=== PATIENT | female | born 1970 | race Caucasian/White ===

== ENCOUNTER 2016-07-25 20:49 | Emergency (ER) | payer MEDICAID ==
[2016-07-25] MEDS ORDERED: DEXAMETHASONE SOD PHOSPHATE 10 MG/ML VIAL IM ONE (21:11)
[2016-07-25] MEDS ORDERED: ALBUTEROL SULFATE 2.5 MG/3 ML VIAL.NEB IH ONE (21:11)
[2016-07-25] MEDS ORDERED: DEXAMETHASONE SOD PHOSPHATE 10 MG/ML VIAL ONE (21:12)
[2016-07-25] MEDS ORDERED: ALBUTEROL SULFATE/IPRATROPIUM 3 ML NEBU IH ONE ×2 (21:12→21:17)
[2016-07-25] MEDS ORDERED: ALBUTEROL SULFATE 2.5 MG/0.5 ML VIAL.NEB IH ONE (21:15)
--- NOTE | 2016-07-25 21:19 | ERNOTE ---
Dyspnea - Date Date of Service: 07/25/16 - General Presenting Symptoms: shortness of breath Source: patient Exam Limitations: no limitations - Immun/Allergies/Home Medications Immunizations: IMMUNIZATION HX Immunizations Up to Date Yes History of Influenza Vaccine Yes Hx Pneumococcal Vaccination No Allergies/Adverse Reactions: Allergies buspirone HCl [From BuSpar] Allergy (Mild, Verified 10/08/15 09:19) CHEST PAIN Penicillins Allergy (Mild, Verified 10/08/15 09:19) RASH Home Medications: HOME MEDICATIONS ALPRAZolam [Xanax] 0.5 mg PO BID PRN 11/23/12 [Last Taken Unknown] Albuterol Sulfate [Ventolin Hfa] 2 puff IH TID PRN 11/23/12 [Last Taken Unknown] Citalopram Hydrobromide [Celexa] 40 mg PO DAILY 11/23/12 [Last Taken Unknown] Famotidine [Pepcid] 40 mg PO BID 11/23/12 [Last Taken Unknown] Montelukast Sodium [Singulair] 10 mg PO DAILY 11/23/12 [Last Taken Unknown] Albuterol Sulfate 2.5 mg IH PRN PRN 03/03/14 [Last Taken Unknown] Dexlansoprazole [Dexilant] 60 mg PO DAILY 03/03/14 [Last Taken Unknown] Fluticasone Propionate [Flonase] 2 spray NS DAILY 03/03/14 [Last Taken Unknown] Ipratropium [place] 0.2 mg IH PRN PRN 03/03/14 [Last Taken Unknown] Loratadine [Claritin] 10 mg PO DAILY 03/03/14 [Last Taken Unknown] - History of Present Illness Narrative: 45 year old that has been having difficulty breathing and chest pressure for 24 hours. This episode is similar to others that she has had. Denies any fevers, chills, back pain. Complaints of wheezing with frequent use of her inhaler, without resolution of the symptoms. Over the last three months she has had frequent exacerbations of her asthma, but there has not been any changes in her medication. Denies any previous heart disease, DVT, PE or pneumonia. 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 Frequency of episodes: Reports: frequent episodes Modifying Factors - (Improves): Reports: nothing Modifying Factors (Worsens): Reports: other - exertion Associated Symptoms-Dyspnea: Reports: cough Prior Treatment: Reports: treated by physician Review of Systems - Review of Systems Constitutional: Present: no symptoms reported EYE: Present: no symptoms reported ENT: Present: no symptoms reported Respiratory: Present: See HPI Cardiology: Present: no symptoms reported Gastrointestinal/Abdominal: Present: no symptoms reported Genitourinary: Present: no symptoms reported Musculoskeletal: Present: no symptoms reported Skin: Present: no symptoms reported Neurological: Present: no symptoms reported Endocrine: Present: no symptoms reported Hematologic/Lymphatic: Present: no symptoms reported Psych: Present: no symptoms reported - Patient's Past Medical History Patient History - Medical: Anxiety, Depression, GERD Patient History - Cardiac/Respiratory: Asthma, Bronchitis Patient History - Cancer: No Hx of Cancer Patient History - Surgical Procedures: Cholecystectomy, Tubal Ligation Patient History - Other: None LMP (females 10-50): this week - Social History Living Situations: spouse Abuse History: No History of abuse Psych History: Hx of Anxiety, Hx of Depression Smoking Status: Former smoker Alcohol Use: none Drug Use: none - Immunizations Immunizations Up to Date: Yes Hx Pneumococcal Vaccination: No History of Influenza Vaccine: Yes Physical Exam - Physical Exam General Appearance: Present: no apparent distress Eye Exam: Normal inspection: bilateral, PERRL: bilateral, EOMI: bilateral Ears, Nose, Throat: Present: normal ENT inspection Neck: Present: normal inspection Respiratory: Present: no respiratory distress, decreased breath sounds, rhonchi Cardiovascular/Chest: Present: regular rate, rhythm Gastrointestinal/Abdominal: Present: nontender Back Exam: Present: normal inspection Extremity Exam: Present: normal inspection Neurological Exam: Present: alert, 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 Vital Signs: Vital Signs 07/25/16 20:52 Temperature 37.0 C Pulse Rate 72 Respiratory 20 Rate Blood Pressure 131/76 O2 Sat by Pulse 98 Oximetry - Progress/Reassessment Chief Complaint: Dyspnea Progress:: Improved Progress Note-Subjective: 07/25/16 23:10 Now asymptomatic after the one hour neb treatment. Departure Clinical Impression: Exacerbation of asthma - Departure Disposition: Home self-care Condition: Good Instructions: Asthma, Acute Bronchospasm Print Language: Citizen Of [place] Additional Instructions: It is suggested that you ask your doctor about starting a steroid/ long acting inhaler such as Advir Discus to help lessen the frequency of the asthma attacks. Return to the ED as needed.
[2016-07-25 23:12] VITALS: BP 110/77
== END 2016-07-25 23:14 | disposition home or self-care (01) ==
LOC: ER 20:49
DX: J45.901 Unspecified asthma with (acute) exacerbation (principal); Z87.891 Personal history of nicotine dependence

== ENCOUNTER 2016-11-24 16:30 | Emergency (ER) | payer MEDICAID ==
--- NOTE | 2016-11-24 17:48 | ERNOTE ---
Date of Service: 11/24/16 Time Seen by Provider: 11/24/16 17:16 Stated Complaint: SOB, CHEST HEAVINESS Presenting Symptoms:: other - Asthma Source: patient, RN notes reviewed Exam Limitations: no limitations Immunizations: IMMUNIZATION HX Immunizations Up to Date Yes History of Influenza Vaccine Yes Hx Pneumococcal Vaccination No Allergies/Adverse Reactions: Allergies buspirone HCl [From BuSpar] Allergy (Mild, Verified 11/24/16 16:50) CHEST PAIN Penicillins Allergy (Mild, Verified 11/24/16 16:50) RASH Home Medications: HOME MEDICATIONS ALPRAZolam [Xanax] 0.5 mg PO BID PRN 11/23/12 [Last Taken Unknown] Albuterol Sulfate [Ventolin Hfa] 2 puff IH TID PRN 11/23/12 [Last Taken Unknown] Famotidine [Pepcid] 40 mg PO BID 11/23/12 [Last Taken Unknown] Montelukast Sodium [Singulair] 10 mg PO DAILY 11/23/12 [Last Taken Unknown] Dexlansoprazole [Dexilant] 60 mg PO DAILY 03/03/14 [Last Taken Unknown] Fluticasone Propionate [Flonase] 2 spray NS DAILY 03/03/14 [Last Taken Unknown] Loratadine [Claritin] 10 mg PO DAILY 03/03/14 [Last Taken Unknown] FLUoxetine HCL [Prozac] 10 mg PO DAILY 11/24/16 [Last Taken Unknown] predniSONE [Prednisone] 2 tab PO DAILY #14 tab 11/24/16 [Last Taken Unknown] - History of Present Ilness Narrative: 46 y/o female to the ED by private vehicle for shortness of breath, chest heaviness and a cough that has been worsening over the past several months. She has asthma and is on Advair and uses an Albuterol inhaler. She is a former smoker. She denies any sick contacts. Of note, she presents with a male patient who is being seen for unrelated/ nonemergent issues. Timing: getting worse, intermittent Frequency/Possible Cause: Reports: unknown cause Associated Symptoms: Reports: cough, shortness of breath, wheezing, nasal drainage, other - seasonal allergy symptoms. Denies: chest pain/soreness, facial pain, nasal congestion, lightheadedness, earache, headache, sore throat, fever/chills Prior Treatment: Denies: recently seen Review of Systems - Review of Systems Constitutional: Absent: recent illness, fever, chills, malaise EYE: Absent: eye discharge, tearing ENT: Present: nasal drainage. Absent: ear pain, nose congestion, sore throat Respiratory: Present: shortness of breath, cough, wheezing. Absent: orthopnea Cardiology: Absent: chest pain, edema Gastrointestinal/Abdominal: Absent: nausea, abdominal pain Genitourinary: Present: no symptoms reported Musculoskeletal: Absent: neck pain, joint pain Skin: Absent: rash, lesions Neurological: Absent: headache, dizziness/light-headedness Endocrine: Present: no symptoms reported Hematologic/Lymphatic: Present: no symptoms reported Psych: Present: no symptoms reported - Patient's Past Medical History Patient History - Medical: Anxiety, Depression, GERD Patient History - Cardiac/Respiratory: Asthma, Bronchitis Patient History - Cancer: No Hx of Cancer Patient History - Surgical Procedures: Cholecystectomy, Tubal Ligation Patient History - Other: None LMP (females 10-50): 3 weeks - Social History Living Situations: spouse Abuse History: No History of abuse Psych History: Hx of Anxiety, Hx of Depression Smoking Status: Former smoker Alcohol Use: none Drug Use: none - Immunizations Immunizations Up to Date: Yes Hx Pneumococcal Vaccination: No History of Influenza Vaccine: Yes Physical Exam - Physical Exam General Appearance: Present: wd/wn, alert, no apparent distress Head Exam: Present: normal inspection Eye Exam: Normal inspection: bilateral Ears, Nose, Throat: Present: normal ENT inspection Neck: Present: normal inspection, nontender, supple Respiratory: Present: no respiratory distress, no accessory muscle use, lungs clear, expiration (prolonged) Cardiovascular/Chest: Present: regular rate, rhythm, no murmur Extremity Exam: Present: normal inspection, no edema Neurological Exam: Present: alert, oriented, other - Flat affect. Absent: normal mood/affect Skin Exam: Present: normal color, warm/dry ED Progress - Vital Signs Patient's Vital Signs:: I have reviewed the patient's vital signs. Vital Signs: Vital Signs 11/24/16 16:40 Temperature 37.1 C Pulse Rate 72 Respiratory 17 Rate Blood Pressure 137/78 O2 Sat by Pulse 97 Oximetry - X-Ray X-Ray #1 X-Ray: chest Interpretation: Interp. by me X-ray Comments: No acute cardiopulmonary process noted - Progress/Reassessment Chief Complaint: Upper Respiratory Symptoms Progress:: Unchanged Departure - Departure Clinical Impression: Exacerbation of asthma Disposition: Home Follow Up Needed Condition: Good Instructions: Asthma, Adult, [id number] Additional Instructions: Wait until morning to start prednisone Follow up with your doctor if symptoms continue once you have finished the medication Referrals: Des Payton DO [Primary Care Provider] - Prescriptions: predniSONE [Prednisone] 2 tab PO DAILY #14 tab
[2016-11-24 21:02] VITALS: BP 121/75
== END 2016-11-24 18:31 | disposition home or self-care (01) ==
LOC: ER 16:30
DX: J45.901 Unspecified asthma with (acute) exacerbation (principal); Z87.891 Personal history of nicotine dependence; F41.9 Anxiety disorder, unspecified; F32.9 Major depressive disorder, single episode, unspecified; K21.9 Gastro-esophageal reflux disease without esophagitis

== ENCOUNTER 2017-02-13 20:20 | Emergency (ER) | payer MEDICAID ==
[2017-02-13 20:59] VITALS: BP 125/69
[2017-02-13 21:53] LABS: Hematocrit 43.9 % (37.0-47.0); Hemoglobin 14.2 gm/dL (12.5-16.0); Mean Cell Volume 89.4 fl (78-100); Mean Corpuscular Hemoglobin 28.9 pg (27-31); Mean Corpuscular Hgb Conc 32.3 g/dl (32-36); Mean Platelet Volume 9.2 fl (6.0-9.5); Neutrophil # 8.9 K/mm3 (1.3-6.0); Neutrophil % 68.9 % (42-75.0); Platelet Count 454 K/mm3 (150-450); Red Blood Count 4.91 M/mm3 (4.2-5.4); Red Cell Distribution Width 13.3 % (11.5-14.0); White Blood Count 12.8 K/mm3 (4.0-10.5)
--- NOTE | 2017-02-13 21:53 | ERNOTE ---
Upper Extremity HPI - Narrative Date of Service: 02/13/17 - General Time Seen by Provider: 02/13/17 20:55 Source: patient Exam Limitations: no limitations - Immun/Allergies/Home Medications Immunizations: IMMUNIZATION HX Immunizations Up to Date Yes History of Influenza Vaccine Yes Hx Pneumococcal Vaccination No Allergies/Adverse Reactions: Allergies Allergy/AdvReac Type Severity Reaction Status Date / Time buspirone HCl [From BuSpar] Allergy Mild CHEST PAIN Verified 11/24/16 16:50 Penicillins Allergy Mild RASH Verified 11/24/16 16:50 Home Medications: HOME MEDICATIONS ALPRAZolam [Xanax] 0.5 mg PO BID PRN 11/23/12 [Last Taken Unknown] Albuterol Sulfate [Ventolin Hfa] 2 puff IH TID PRN 11/23/12 [Last Taken Unknown] Famotidine [Pepcid] 40 mg PO BID 11/23/12 [Last Taken Unknown] Montelukast Sodium [Singulair] 10 mg PO DAILY 11/23/12 [Last Taken Unknown] Dexlansoprazole [Dexilant] 60 mg PO DAILY 03/03/14 [Last Taken Unknown] Fluticasone Propionate [Flonase] 2 spray NS DAILY 03/03/14 [Last Taken Unknown] Loratadine [Claritin] 10 mg PO DAILY 03/03/14 [Last Taken Unknown] FLUoxetine HCL [Prozac] 10 mg PO DAILY 11/24/16 [Last Taken Unknown] predniSONE [Prednisone] 2 tab PO DAILY #14 tab 11/24/16 [Last Taken Unknown] Ibuprofen [Motrin] 600 mg PO TID PRN #15 tablet 02/13/17 [Last Taken Unknown] Sulfamethoxazole/Trimethoprim [Bactrim Ds] 1 tab PO BID #14 tablet 02/13/17 [ Last Taken Unknown] - History of Present Illness Narrative: Patient presents to the emergency room for shoulder pain on the right side that she has had for approximately week and half. She denies any trauma she denies any repetitive motions there has been no offending action against her right shoulder in her daily life. And she complains of pain in the right upper neck region shoulder biceps area and forearm. She denies any chest pains whatsoever she does state that every so often she gets abdominal pains in the left lower quadrant of the abdomen denies any nausea vomiting diarrhea or constipation, pain now Review of Systems - Review of Systems Constitutional: Present: no symptoms reported EYE: Present: no symptoms reported ENT: Present: no symptoms reported Respiratory: Present: no symptoms reported Cardiology: Present: no symptoms reported Gastrointestinal/Abdominal: Present: no symptoms reported Genitourinary: Present: no symptoms reported Musculoskeletal: Present: See HPI Skin: Present: no symptoms reported - Patient's Past Medical History Patient History - Medical: Anxiety, Depression, GERD Patient History - Cardiac/Respiratory: Asthma, Bronchitis Patient History - Cancer: No Hx of Cancer Patient History - Surgical Procedures: Cholecystectomy, Tubal Ligation Patient History - Other: None - Social History Living Situations: home Abuse History: No History of abuse Psych History: Hx of Anxiety, Hx of Depression, Current tx/ever been on anti- depressants or anti-anxiety meds Smoking Status: Former smoker Alcohol Use: none Drug Use: none - Immunizations Immunizations Up to Date: Yes Hx Pneumococcal Vaccination: No History of Influenza Vaccine: Yes Physical Exam - Physical Exam General Appearance: Present: wd/wn, alert, no apparent distress Head Exam: Present: normal inspection, no evidence of injury Neck: Present: normal inspection, nontender - patient is slightly tender upon palpation of the right upper trapezius I don't feel any spasm. Respiratory: Present: no respiratory distress, normal breath sounds, no accessory muscle use, chest nontender, lungs clear Cardiovascular/Chest: Present: regular rate, rhythm, no murmur, normal peripheral pulses Back Exam: Present: normal inspection Extremity Exam: Present: normal inspection - examination of all 4 extremities is within normal limits I do not see any deformity bruising ecchymosis or anomalies of the right upper extremity she is able to move her shoulder and right elbow and CONFIGURATION without any pain. The exam of the upper extremity on the right side is essentially normal. Neurological Exam: Present: alert, oriented, normal mood/affect, no motor/ sensory deficits ED Progress - Results and Orders Patient's Lab Results:: I have reviewed the patient's lab results. - Vital Signs Patient's Vital Signs:: I have reviewed the patient's vital signs. Vital Signs: Vital Signs 02/13/17 20:53 Temperature 36.2 C L Pulse Rate 74 Respiratory 18 Rate Blood Pressure 125/69 O2 Sat by Pulse 100 Oximetry - X-Ray X-Ray #1 X-Ray: shoulder - Progress/Reassessment Chief Complaint: Upper Extremity Injury/Problem Plan - Plan Plan: This patient appears to have musculoskeletal pain of the right shoulder her x- ray is negative however she will be given a sling for her right upper extremity additionally her urinalysis reveals bacteria and blood on the urine and she will be treated for UTI. Departure Clinical Impression: Pain, joint, shoulder region, right Urinary tract infection Qualifiers: Urinary tract infection type: site unspecified Hematuria presence: with hematuria Qualified Code(s): N39.0 - Urinary tract infection, site not specified ; R31.9 - Hematuria, unspecified; R31.9 - Hematuria, unspecified - Departure Disposition: Home self-care Condition: Good Instructions: Arthritis Referrals: Des Payton DO [Primary Care Provider] - Prescriptions: Ibuprofen [Motrin] 600 mg PO TID PRN #15 tablet PRN Reason: Pain Sulfamethoxazole/Trimethoprim [Bactrim Ds] 1 tab PO BID #14 tablet
[2017-02-13 22:13] LABS: Urine Bilirubin Negative (NEGATIVE); Urine Blood 50 /ul (NEGATIVE); Urine Ketone Negative (NEGATIVE); Urine Nitrite Negative (NEGATIVE); Urine Protein Negative (NEGATIVE); Urine Specific Gravity >=1.030 SP.GR. (1.005-1.010); Urine Urobilinogen Normal (NORMAL); Urine pH 5.5 pH (5.0-7.0)
[2017-02-13 22:17] LABS: Urine Appearance Slightly Cloudy; Urine Bacteria 1+; Urine Color Yellow; Urine Mucus Moderate - 2+; Urine RBC 0-5 /hpf (0-5); Urine WBC 0-5 /hpf (0-5)
== END 2017-02-13 22:36 | disposition home or self-care (01) ==
LOC: ER 20:20
DX: M25.511 Pain in right shoulder (principal); N39.0 Urinary tract infection, site not specified; R31.9 Hematuria, unspecified

== ENCOUNTER 2017-06-07 18:42 | Emergency (ER) | payer MEDICAID ==
[2017-06-07] MEDS ORDERED: KETOROLAC TROMETHAMINE 60 MG/2 ML VIAL IM ONE ×2 (18:54→19:01)
[2017-06-07] MEDS ORDERED: CLINDAMYCIN PHOSPHATE 150 MG/ML VIAL IM ONE (18:54)
--- NOTE | 2017-06-07 18:57 | ERNOTE ---
ENT HPI Date of Service: 06/07/17 Presenting Symptoms: dental pain Time Seen by Provider: 06/07/17 18:50 Source: patient Exam Limitations: no limitations - Immun/Allergies/Home Medications Immunizations: IMMUNIZATION HX Immunizations Up to Date Yes History of Influenza Vaccine Yes Hx Pneumococcal Vaccination No Allergies/Adverse Reactions: Allergies Allergy/AdvReac Type Severity Reaction Status Date / Time buspirone HCl [From BuSpar] Allergy Mild CHEST PAIN Verified 06/07/17 18:51 Penicillins Allergy Mild RASH Verified 06/07/17 18:51 Home Medications: HOME MEDICATIONS ALPRAZolam [Xanax] 0.5 mg PO BID PRN 11/23/12 [Last Taken Unknown] Albuterol Sulfate [Ventolin Hfa] 2 puff IH TID PRN 11/23/12 [Last Taken Unknown] Famotidine [Pepcid] 40 mg PO BID 11/23/12 [Last Taken Unknown] Fluticasone Propionate [Flonase] 2 spray NS DAILY 03/03/14 [Last Taken Unknown] FLUoxetine HCL [Prozac] 10 mg PO DAILY 11/24/16 [Last Taken Unknown] Clindamycin HCl [Cleocin HCl] 300 mg PO Q6H #40 capsule 06/07/17 [Last Taken Unknown] Naproxen [Naprosyn] 500 mg PO BID PRN #60 tab 06/07/17 [Last Taken Unknown] - History of Present Illness Narrative: Pt. comes in with c/o R maxillary pain for two days. Pt. has a hx of dental pain previously but does not have a dentist that she sees regularly. Pt. states that she took Ibuprofen yesterday with some relief. Severity: Present: mild ENT Location: Present: dental Prearrival Treatment: Present: over the counter meds Modifying Factors - Improves: Reports: nothing Modifying Factors - Worsens: Reports: oxygen, other - eating Associated Symptoms - ENT: Reports: denies symptoms Prior Treament: Reports: similar symptoms before. Denies: recently seen, treated by physician, recently hospitalized, currently on antibiotics Review of Systems - Review of Systems Constitutional: Present: no symptoms reported. Absent: fever, chills, weakness , fatigue, malaise EYE: Present: no symptoms reported. Absent: eye pain, double vision ENT: Present: other - R maxillary dental pain Respiratory: Present: no symptoms reported. Absent: shortness of breath, cough , wheezing Cardiology: Present: no symptoms reported. Absent: chest pain, edema Gastrointestinal/Abdominal: Present: no symptoms reported. Absent: nausea, vomiting, diarrhea, abdominal pain Genitourinary: Present: no symptoms reported Musculoskeletal: Present: no symptoms reported. Absent: back pain, joint pain Skin: Present: no symptoms reported. Absent: rash, change in color Neurological: Present: no symptoms reported. Absent: headache, dizziness/light- headedness, numbness, tingling All Other Systems: All systems neg except as marked - Patient's Past Medical History Patient History - Medical: Anxiety, Depression, GERD Patient History - Cardiac/Respiratory: Asthma, Bronchitis Patient History - Cancer: No Hx of Cancer Patient History - Surgical Procedures: Cholecystectomy, Tubal Ligation Patient History - Other: None - Social History Abuse History: No History of abuse Psych History: Hx of Anxiety, Hx of Depression, Current tx/ever been on anti- depressants or anti-anxiety meds Smoking Status: Former smoker Have you smoked in the past 12 months: No Alcohol Use: none Drug Use: none - Immunizations Immunizations Up to Date: Yes Hx Pneumococcal Vaccination: No History of Influenza Vaccine: Yes Physical Exam - Physical Exam General Appearance: Present: wd/wn, alert, no apparent distress Head Exam: Present: normal inspection, no evidence of injury, no tenderness w palpation Eye Exam: Normal inspection: bilateral Ears, Nose, Throat: Present: normal pharynx, other - R maxillary abscess noted at gumline above R canine tooth with caries below pulp Neck: Present: normal inspection, nontender, supple, full range of motion. Absent: lymphadenopathy (R), lymphadenopathy (L) Respiratory: Present: no respiratory distress, normal breath sounds, no accessory muscle use, chest nontender, lungs clear Cardiovascular/Chest: Present: regular rate, rhythm, no murmur, normal peripheral pulses Gastrointestinal/Abdominal: Present: normal bowel sounds, nontender, nondistended, soft, no organomegaly Back Exam: Present: normal inspection, normal range of motion, no CVA tenderness , no vertebral tenderness Extremity Exam: Present: normal inspection, non-tender, normal range of motion, no edema Neurological Exam: Present: alert, oriented, normal mood/affect, no motor/ sensory deficits Skin Exam: Present: normal color, warm/dry. Absent: pallor, skin rash ED Progress - Vital Signs Patient's Vital Signs:: I have reviewed the patient's vital signs. Vital Signs: Vital Signs 06/07/17 18:47 Temperature 37.1 C Pulse Rate 77 Respiratory 18 Rate Blood Pressure 144/80 O2 Sat by Pulse 100 Oximetry - Progress/Reassessment Chief Complaint: Dental Problem Departure Clinical Impression: Dental abscess - Departure Disposition: Home self-care Condition: Good Instructions: Dental Abscess, [id number] Additional Instructions: Please follow up with dentist tomorrow and stop Ibuprofen Referrals: Des Payton DO [Primary Care Provider] - Prescriptions: Clindamycin HCl [Cleocin HCl] 300 mg PO Q6H #40 capsule Naproxen [Naprosyn] 500 mg PO BID PRN #60 tab PRN Reason: Pain
[2017-06-07 19:30] VITALS: BP 136/71
== END 2017-06-07 19:29 | disposition home or self-care (01) ==
LOC: ER 18:42
DX: K04.7 Periapical abscess without sinus (principal); K21.9 Gastro-esophageal reflux disease without esophagitis; F41.9 Anxiety disorder, unspecified; F32.9 Major depressive disorder, single episode, unspecified; J45.909 Unspecified asthma, uncomplicated; Z87.891 Personal history of nicotine dependence

== ENCOUNTER 2018-06-18 20:13 | Observation (INO) ==
[2018-06-18] MEDS ORDERED: KETOROLAC TROMETHAMINE 60 MG/2 ML VIAL IM ONE (20:43)
[2018-06-18 20:45] LABS: Urine Bilirubin Negative (NEGATIVE); Urine Blood 250 /ul (NEGATIVE); Urine Ketone Negative (NEGATIVE); Urine Nitrite Negative (NEGATIVE); Urine Protein Negative (NEGATIVE); Urine Specific Gravity >=1.030 SP.GR. (1.005-1.010); Urine Urobilinogen Normal (NORMAL)
--- NOTE | 2018-06-18 20:48 | ERNOTE ---
Abdominal HPI - General Chief Complaint: Abdominal Pain Time Seen by Provider: 06/18/18 20:42 Source: patient Exam Limitations: no limitations - Immun/Allergies/Home Medications Immunizatons: IMMUNIZATION HX Immunizations Up to Date Yes History of Influenza Vaccine Yes Hx Pneumococcal Vaccination No Allergies/Adverse Reactions: Allergies buspirone HCl [From BuSpar] Allergy (Mild, Verified 06/17/18 10:34) CHEST PAIN Penicillins Allergy (Mild, Verified 06/17/18 10:34) RASH citalopram [From Celexa] Allergy (Verified 06/17/18 10:34) Chest Shoulder Arm Pain escitalopram [From Lexapro] Allergy (Verified 06/17/18 10:34) Chest Shoulder Arm Pain Home Medications: HOME MEDICATIONS albuterol sulfate 2.5 mg/3 mL (0.083 %) solution for nebulization 2.5 mg IH Q4H PRN 10/30/17 [Last Taken Unknown] cetirizine 10 mg tablet 10 mg PO DAILY PRN 10/30/17 [Last Taken Unknown] ferrous sulfate 325 mg (65 mg iron) tablet 325 mg PO DAILY tab 10/30/17 [Last Taken Unknown] cholecalciferol (vitamin D3) 1,000 unit capsule 1,000 unit PO DAILY 11/02/17 [Last Taken Unknown] albuterol sulfate HFA 90 mcg/actuation aerosol inhaler 2 puff IH TID PRN #8.5 g 05/27/18 [Last Taken Unknown] famotidine 40 mg tablet 40 mg PO DAILY #30 tab 06/12/18 [Last Taken Unknown] fluticasone 250 mcg-salmeterol 50 mcg/dose blistr powdr for inhalation 1 inh IH BID #60 ea 06/12/18 [Last Taken Unknown] alprazolam 0.5 mg tablet 0.5 mg PO BID PRN #60 tab 06/17/18 [Last Taken Unknown] fluoxetine 20 mg capsule 20 mg PO DAILY #30 cap 06/17/18 [Last Taken Unknown] lamotrigine 150 mg tablet 150 mg PO DAILY #30 tab 06/17/18 [Last Taken Unknown] lisdexamfetamine 40 mg capsule 40 mg PO DAILY #30 cap 06/17/18 [Last Taken Unknown] Montelukast Sodium [Singulair] 10 mg PO QPM PRN 06/18/18 [Last Taken Unknown] - History of Present Illness Narrative: Pt has had some right sided abd pain for about a week. Today it worsened. Denies other symptoms Timing: getting worse Quality: moderate, severe, aching Associated Symptoms: Present: denies symptoms Review of Systems - Review of Systems Constitutional: Absent: recent illness, fever, chills Respiratory: Absent: shortness of breath, cough Cardiology: Absent: chest pain Gastrointestinal/Abdominal: Present: See HPI, nausea, abdominal pain. Absent: vomiting Genitourinary: Present: frequency. Absent: dysuria Musculoskeletal: Present: back pain Skin: Absent: rash Endocrine: Absent: excessive sweating Medical History (Last Reviewed 06/18/18 @ 20:46 by Emir Mccray DO) Major depression (Chronic) Borderline personality disorder (Chronic) Attention deficit disorder of adult with hyperactivity (Chronic) Attention deficit hyperactivity disorder Polydipsia Onset Date: ~01/18/14 Received influenza vaccination in current influenza season prior to admission Onset Date: ~02/2018 UTI (urinary tract infection) Vitamin D deficiency Allergic rhinitis likely leading to weakness and tiredness with post nasal drip taking nasal inhaler (Flonase) and eye drops regularly; zyrtec failed try elenita or loratidine. Anemia, iron deficiency microcytic- check iron studies and stool cards; patient empirically started on iron Anxiety Asthma, intermittent Bipolar disorder Cystitis Depression Easy bruising Onset Date: ~01/18/14 Fatigue Onset Date: ~01/18/14 Fibromyalgia History of frequent headaches Incontinence of urine Irritable bowel syndrome Menorrhagia Onset Date: ~01/18/14 Morbid obesity Panic disorder Sinusitis, acute Urinary frequency Onset Date: ~01/18/14 Abnormal ultrasound of endometrium Onset Date: ~02/08/14 Dysmenorrhea Onset Date: ~01/18/14 Hand pain, right History of abnormal cervical Pap smear Migraines with aura only once Ovarian cyst Onset Date: ~02/08/14 Bronchitis Other screening mammogram Onset Date: ~01/18/14 Surgical History: Surgical History (Last Reviewed 06/18/18 @ 20:46 by Emir Mccray DO) H/O dilation and curettage Onset Date: ~03/14/14 H/O: hysterectomy Onset Date: ~03/14/14 History of cholecystectomy age 40 History of tubal ligation cervical cryotherapy age 23 Family History: Family History (Last Reviewed 06/18/18 @ 20:46 by Emir Mccray DO) Brother Heart disease Grandmother Diabetes Heart disease Social History: Preferred Language Bahamian Do you have any scientology or No cultural preference? Smoking Status Former smoker Have you smoked in the past 12 No months Do you dip or chew tobacco No Abuse History No History of abuse Psych History Hx of Anxiety,Hx of Depression,Currently on Meds Alcohol Use none Drug Use none (Last Updated 06/17/18 @ 10:49 by DEBORAH JuneP) No Social History Section defined Physical Exam - Physical Exam General Appearance: Present: wd/wn, alert, mild distress Head Exam: Present: normal inspection, no evidence of injury Ears, Nose, Throat: Present: dry mucous membranes, other - poor dental hygeine and condition Neck: Present: normal inspection, supple Respiratory: Present: no respiratory distress, no accessory muscle use, lungs clear Cardiovascular/Chest: Present: regular rate, rhythm, no murmur Gastrointestinal/Abdominal: Present: normal bowel sounds, soft, tenderness - LLQ, RLQ. Absent: distended, guarding, rebound Back Exam: Present: no vertebral tenderness, CVA tenderness (R) Extremity Exam: Present: normal inspection, normal range of motion Neurological Exam: Present: alert, oriented, normal mood/affect, no motor/sensory deficits Skin Exam: Present: normal color, warm/dry Lymphatic Exam: Present: no adenopathy Progress - Results and Orders Patient's Lab Results:: I have reviewed the patient's lab results. Results and Orders: Laboratory Tests 06/18/18 06/18/18 06/18/18 20:41 20:55 20:55 WBC 12.3 H Hgb 13.3 Hct 41.9 Plt Count 457 H Sodium 135 Potassium 3.3 L Chloride 102 Carbon Dioxide 26.9 BUN 13 Creatinine 0.73 Random Glucose 124 H Calcium 10.2 Urine Color Yellow Urine Appearance Clear Urine pH 6.0 Ur Specific [place] >=1.030 Urine Protein Negative Urine Glucose (UA) Negative Urine Ketones Negative Urine Blood 250 H Urine Nitrate Negative Urine Bilirubin Negative Urine Urobilinogen Normal Ur Leukocyte Esterase Negative Urine RBC 5-10 H Urine WBC 0-5 Ur Epithelial Cells 5-10 H Urine Bacteria 1+ H Urine Mucus Moderate - 2+ H Urine Culture Comments No culture indicated - Vital Signs Patient's Vital Signs:: I have reviewed the patient's vital signs. Vital Signs: Vital Signs 06/18/18 20:20 Temperature 36.0 C Pulse Rate 90 Respiratory Rate 16 Blood Pressure 127/78 O2 Sat by Pulse Oximetry 99 - CT/Ultrasound CT/Ultrasound Narrative: CT abd/ pelvis stone protocol: liver cyst No bowel obstruction, Cecal bascule No findings suggesting appendicitis thickening of the lower uterine segment 1.8 cm right ovarian cyst. Small fatty containing umbilical hernia with the diastases measuring up to 7mm - Progress/Reassessment Chief Complaint: Abdominal Pain Progress Note-Subjective: 06/18/18 22:[address] Aguillon about the CT findings of a Cecal bascule without evidence for obstruction. She will review CT and call back. 06/18/18 23:05 Dr. Aguillon in the ED to examine the patient. 06/18/18 23:07 Dr. Aguillon decided to admit the patient to observation. Departure Clinical Impression: Cecal bascule Abdominal pain Qualifiers: Abdominal location: right lower quadrant Qualified Code(s): R10.31 - Right lower quadrant pain - Departure Disposition: Still a patient Condition: Fair
[2018-06-18 20:57] LABS: Hematocrit 41.9 % (37.0-47.0); Hemoglobin 13.3 gm/dL (12.5-16.0); Mean Cell Volume 90.7 fl (78-100); Mean Corpuscular Hemoglobin 28.8 pg (27-31); Mean Corpuscular Hgb Conc 31.7 g/dl (32-36); Neutrophil # 8.4 K/mm3 (1.3-6.0); Neutrophil % 68.7 % (42-75.0); Platelet Count 457 K/mm3 (150-450); Red Blood Count 4.62 M/mm3 (4.2-5.4); Red Cell Distribution Width 12.9 % (11.5-14.0); White Blood Count 12.3 K/mm3 (4.0-10.5)
[2018-06-18 20:57] LABS: Urine Appearance Clear (CLEAR); Urine Bacteria 1+; Urine Color Yellow; Urine Mucus Moderate - 2+; Urine WBC 0-5 /hpf (0-5)
[2018-06-18 21:05] LABS: Anion Gap 9.4 mmol/L (6.8-13.8); BUN/Creatinine Ratio 17.8 (9.0-21.6); Calcium * 10.2 mg/dL (7.9-10.9); Carbon Dioxide 26.9 mmol/L (24-32.6); Estimated Creat Clear 87.3; Potassium 3.3 mmol/L (3.4-4.6)
[2018-06-18] MEDS ORDERED: ONDANSETRON HCL/PF 2 MG/ML VIAL IV PRN (23:14)
[2018-06-18] MEDS ORDERED: KETOROLAC TROMETHAMINE 15 MG/ML VIAL IV PRN (23:14)
[2018-06-18] MEDS ORDERED: HYDROmorphone HCL 1 MG/ML DISP.SYRIN IV PRN (23:14)
[2018-06-18] MEDS ORDERED: ACETAMINOPHEN 1,000 MG/100 ML BTL IV PRN (23:14)
--- NOTE | 2018-06-18 23:32 | HP ---
Chief Complaint - Chief Complaint Date of Service: 06/18/18 Time of Service: 23:24 Chief Complaint: cecal bascule History of Present Illness: Rosie is a very pleasant 47-year-old female who presents with right lower quadrant abdominal pain. This radiates to the left lower quadrant. Her last bowel movement was this morning. It was a mixture of both liquid and formed stool. She has been passing gas throughout the day. She is currently feeling better after being in the emergency room. She denies ever having a bowel obstruction before. Never had a colonoscopy before. She denies a family history of colon cancer. Previous surgical history includes a laparoscopic cholecystectomy and tubal ligation. 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 Anemia, iron deficiency microcytic- check iron studies and stool cards; patient empirically started on iron Anxiety Asthma, intermittent Bipolar disorder Cystitis Depression Easy bruising Onset Date: ~01/18/14 Fatigue Onset Date: ~01/18/14 Fibromyalgia History of frequent headaches Incontinence of urine Irritable bowel syndrome Menorrhagia Onset Date: ~01/18/14 Morbid obesity Panic disorder Sinusitis, acute Urinary frequency Onset Date: ~01/18/14 Abnormal ultrasound of endometrium Onset Date: ~02/08/14 Dysmenorrhea Onset Date: ~01/18/14 Hand pain, right History of abnormal cervical Pap smear Migraines with aura only once Ovarian cyst Onset Date: ~02/08/14 Bronchitis Other screening mammogram Onset Date: ~01/18/14 Surgical History: Surgical History (Last Reviewed 06/18/18 @ 20:46 by Emir Mccray DO) H/O dilation and curettage Onset Date: ~03/14/14 H/O: hysterectomy Onset Date: ~12/02/14 History of cholecystectomy age 40 History of tubal ligation cervical cryotherapy age 23 Family History: Family History (Last Reviewed 06/18/18 @ 20:46 by Emir Mccray DO) Brother Heart disease Grandmother Diabetes Heart disease Social History: Preferred Language Ivorian Do you have any latter-day or No cultural preference? Smoking Status Former smoker Have you smoked in the past 12 No months Do you dip or chew tobacco No Abuse History No History of abuse Psych History Hx of Anxiety,Hx of Depression,Currently on Meds Alcohol Use none Drug Use none (Last Updated 06/17/18 @ 10:49 by OSWALD June) No Social History Section defined Review Of Systems (GEN) - Review of Systems Generalized/Overall Review: Present: Malaise EENTM: Present: No Symptoms Reported Respiratory: Present: No Symptoms Reported Cardiac: Present: No Symptoms Reported Abdominal: Present: No Symptoms Reported Genitourinary: Present: No Symptoms Reported Musculoskeletal: Present: No Symptoms Reported Neurological: Present: No Symptoms Reported Skin: Present: No Symptoms Reported Endocrine: Present: No Symptoms Reported Immunizations: IMMUNIZATION HX Immunizations Up to Date Yes History of Influenza Vaccine Yes Hx Pneumococcal Vaccination No Allergies/Adverse Reactions: Allergies Allergy/AdvReac Type Severity Reaction Status Date / Time buspirone HCl [From BuSpar] Allergy Mild CHEST PAIN Verified 06/17/18 10:34 Penicillins Allergy Mild RASH Verified 06/17/18 10:34 citalopram [From Celexa] Allergy Chest Verified 06/17/18 10:34 Shoulder Arm Pain escitalopram [From Lexapro] Allergy Chest Verified 06/17/18 10:34 Shoulder Arm Pain Home Medications: HOME MEDICATIONS albuterol sulfate 2.5 mg/3 mL (0.083 %) solution for nebulization 2.5 mg IH Q4H PRN 10/30/17 [Last Taken Unknown] cetirizine 10 mg tablet 10 mg PO DAILY PRN 10/30/17 [Last Taken Unknown] ferrous sulfate 325 mg (65 mg iron) tablet 325 mg PO DAILY tab 10/30/17 [Last Taken Unknown] cholecalciferol (vitamin D3) 1,000 unit capsule 1,000 unit PO DAILY 11/02/17 [Last Taken Unknown] albuterol sulfate HFA 90 mcg/actuation aerosol inhaler 2 puff IH TID PRN #8.5 g 05/27/18 [Last Taken Unknown] famotidine 40 mg tablet 40 mg PO DAILY #30 tab 06/12/18 [Last Taken Unknown] fluticasone 250 mcg-salmeterol 50 mcg/dose blistr powdr for inhalation 1 inh IH BID #60 ea 06/12/18 [Last Taken Unknown] alprazolam 0.5 mg tablet 0.5 mg PO BID PRN #60 tab 06/17/18 [Last Taken Unknown] fluoxetine 20 mg capsule 20 mg PO DAILY #30 cap 06/17/18 [Last Taken Unknown] lamotrigine 150 mg tablet 150 mg PO DAILY #30 tab 06/17/18 [Last Taken Unknown] lisdexamfetamine 40 mg capsule 40 mg PO DAILY #30 cap 06/17/18 [Last Taken Unknown] Montelukast Sodium [Singulair] 10 mg PO QPM PRN 06/18/18 [Last Taken Unknown] Exam - Exam Vital Signs: Vital Signs - Last Taken Temp 36.0 C 06/18/18 20:20 Pulse 70 06/18/18 22:55 Resp 16 06/18/18 20:20 BP 119/76 06/18/18 22:55 Pulse Ox 100 06/18/18 22:55 Constitutional: Present: Alert, Oriented x3, Cooperative ENT Exam: Present: hearing grossly normal Neck: Present: non-tender Breasts: Present: Exam deferred Respiratory: Present: chest non-tender, lungs clear Cardiovascular/Chest: Present: regular rate, rhythm Abdomen: Present: Normal bowel sounds, soft, obese, tender - mild. Absent: no rebound tenderness, guarding, rigidity /Rectal: Present: Exam deferred Extremity: Present: normal range of motion Skin Exam: Present: normal color Neurologic: Present: auto wheel alignment specialist II-XII nml as tested Appearance: Present: appropriate appearance Eye contact: Present: cooperative, good eye contact Thoughts: Present: normal thought pattern Diagnostic Studies: Abnormal Lab Results 06/18/18 06/18/18 06/18/18 Range/Units 20:41 20:55 20:55 WBC 12.3 H (4.0-10.5) K/mm3 MCHC 31.7 L (32-36) g/dl Plt Count 457 H (150-450) K/mm3 Immature Gran # (Auto) 0.04 H (0.000-0.0310) K/mm3 Neutrophils # 8.4 H (1.3-6.0) K/mm3 Potassium 3.3 L (3.4-4.6) mmol/L Random Glucose 124 H (70-110) mg/dL Urine Blood 250 H (NEGATIVE) /ul Urine RBC 5-10 H (0-5) /hpf Ur Epithelial Cells 5-10 H (0-5) /hpf Urine Bacteria 1+ H (NONE) Urine Mucus Moderate - 2+ H (NONE) Laboratory Results WBC 12.3 K/mm3 (4.0-10.5) H 06/18/18 20:55 RBC 4.62 M/mm3 (4.2-5.4) 06/18/18 20:55 Hgb 13.3 gm/dL (12.5-16.0) 06/18/18 20:55 Hct 41.9 % (37.0-47.0) 06/18/18 20:55 MCV 90.7 fl (78-100) 06/18/18 20:55 MCH 28.8 pg (27-31) 06/18/18 20:55 MCHC 31.7 g/dl (32-36) L 06/18/18 20:55 RDW 12.9 % (11.5-14.0) 06/18/18 20:55 Plt Count 457 K/mm3 (150-450) H 06/18/18 20:55 MPV 9.0 fl (8-12.5) 06/18/18 20:55 Immature Gran % (Auto) 0.30 % (0.001-0.429) 06/18/18 20:55 Immature Gran # (Auto) 0.04 K/mm3 (0.000-0.0310) H 06/18/18 20:55 Neutrophils % 68.7 % (42-75.0) 06/18/18 20:55 Lymphocytes % 22.0 % (20-51) 06/18/18 20:55 Monocytes % 7.2 % (0.0-9) 06/18/18 20:55 Eosinophils % 1.4 % (0.0-3.0) 06/18/18 20:55 Basophils % 0.4 % (0.0-1.0) 06/18/18 20:55 Nucleated RBC % 0.0 k/mm3 (0-1) 06/18/18 20:55 Neutrophils # 8.4 K/mm3 (1.3-6.0) H 06/18/18 20:55 Lymphocytes # 2.70 k/mm3 (1.5-3.5) 06/18/18 20:55 Monocytes # 0.9 k/mm3 (0.0-1.0) 06/18/18 20:55 Eosinophils # 0.2 k/mm3 (0.0-0.7) 06/18/18 20:55 Absolute Basophils 0.1 k/mm3 (0.0-0.1) 06/18/18 20:55 Sodium 135 mmol/L (132-142) 06/18/18 20:55 Plasma Sodium 135 mmol/L (130-142) 06/18/18 20:55 Potassium 3.3 mmol/L (3.4-4.6) L 06/18/18 20:55 Chloride 102 mmol/L (97-106) 06/18/18 20:55 Carbon Dioxide 26.9 mmol/L (24-32.6) 06/18/18 20:55 Anion Gap 9.4 mmol/L (6.8-13.8) 06/18/18 20:55 BUN 13 mg/dL (3-23) 06/18/18 20:55 Creatinine 0.73 mg/dL (0.4-1.4) 06/18/18 20:55 Est GFR (Non-Af Amer) 90 mL/min (60-130) 06/18/18 20:55 BUN/Creatinine Ratio 17.8 (9.0-21.6) 06/18/18 20:55 Random Glucose 124 mg/dL (70-110) H 06/18/18 20:55 Calcium 10.2 mg/dL (7.9-10.9) 06/18/18 20:55 Urine Color Yellow 06/18/18 20:41 Urine Appearance Clear (CLEAR) 06/18/18 20:41 Urine pH 6.0 pH (5.0-7.0) 06/18/18 20:41 Ur Specific [place] >=1.030 SP.GR. (1.005-1.010) 06/18/18 20:41 Urine Protein Negative mg/dL (NEGATIVE) 06/18/18 20:41 Urine Glucose (UA) Negative mg/dL (NEGATIVE) 06/18/18 20:41 Urine Ketones Negative mg/dL (NEGATIVE) 06/18/18 20:41 Urine Blood 250 /ul (NEGATIVE) H 06/18/18 20:41 Urine Nitrate Negative (NEGATIVE) 06/18/18 20:41 Urine Bilirubin Negative mg/dl (NEGATIVE) 06/18/18 20:41 Urine Urobilinogen Normal EU/dl (NORMAL) 06/18/18 20:41 Ur Leukocyte Esterase Negative /ul (NEGATIVE) 06/18/18 20:41 Urine RBC 5-10 /hpf (0-5) H 06/18/18 20:41 Urine WBC 0-5 /hpf (0-5) 06/18/18 20:41 Ur Epithelial Cells 5-10 /hpf (0-5) H 06/18/18 20:41 Urine Bacteria 1+ (NONE) H 06/18/18 20:41 Urine Mucus Moderate - 2+ (NONE) H 06/18/18 20:41 Urine Culture Comments No culture indicated 06/18/18 20:41 Assessment/Plan - Assessment/Plan (1) Cecal bascule Problem: Acute (2) Abdominal pain Problem: Acute Qualifiers: Abdominal location: right lower quadrant Qualified Code(s): R10.31 - Right lower quadrant pain (3) Major depression Problem: Chronic Qualifiers: (4) Borderline personality disorder Problem: Chronic Plan - Plan Plan: Patient's pain is improving. Her vital signs and labs are stable. Her clinical exam is benign. Plan to admit the patient for observation. Repeat the abdominal x-ray in the morning. Recheck labs in the morning. Place an NG emesis develops. Continue with clinical exams. As an outpatient she will need a colonoscopy.
[2018-06-19] MEDS: POTASSIUM CHLORIDE 20 MEQ in DEXTROSE 5%-0.5 NORMAL SALINE 990 ML IV SCH ×2 (01:59→10:20)
[2018-06-19 07:46] LABS: Anion Gap 13.9 mmol/L (6.8-13.8); BUN/Creatinine Ratio 13.2 (9.0-21.6); Calcium * 9.2 mg/dL (7.9-10.9); Carbon Dioxide 25.6 mmol/L (24-32.6); Estimated Creat Clear 93.7; Potassium 3.5 mmol/L (3.4-4.6)
[2018-06-19 07:50] LABS: Hematocrit 40.3 % (37.0-47.0); Hemoglobin 13.1 gm/dL (12.5-16.0); Mean Cell Volume 90.8 fl (78-100); Mean Corpuscular Hemoglobin 29.5 pg (27-31); Mean Corpuscular Hgb Conc 32.5 g/dl (32-36); Mean Platelet Volume 9.2 fl (8-12.5); Neutrophil % 70.4 % (42-75.0); Platelet Count 397 K/mm3 (150-450); Red Blood Count 4.44 M/mm3 (4.2-5.4)
--- NOTE | 2018-06-19 09:07 | PN ---
Dictated Progress Note - Date and Time Seen: Date: 06/19/18 Time: 09:03 - Progress Note Narrative: Having flatus, feels similar to last night, nausea has resolved. Abd pain is rated 5/10. Overall feels a little better, only had toradol overnoc. Vital Signs - Last Taken Temp 36.3 C 06/19/18 06:54 Pulse 71 06/19/18 06:54 Resp 16 06/19/18 06:54 BP 105/67 06/19/18 06:54 Pulse Ox 99 06/19/18 06:54 Abnormal/Pending Laboratory Last 24 HRS 06/19/18 06/19/18 06/18/18 07:32 06:00 20:55 WBC MCHC Plt Count Immature Gran # (Auto) Lymphocytes % 19.8 L Neutrophils # 7.0 H Potassium 3.3 L Anion Gap 13.9 H Random Glucose 120 H 124 H Urine Blood Urine RBC Ur Epithelial Cells Urine Bacteria Urine Mucus 06/18/18 06/18/18 20:55 20:41 WBC 12.3 H MCHC 31.7 L Plt Count 457 H Immature Gran # (Auto) 0.04 H Lymphocytes % Neutrophils # 8.4 H Potassium Anion Gap Random Glucose Urine Blood 250 H Urine RBC 5-10 H Ur Epithelial Cells 5-10 H Urine Bacteria 1+ H Urine Mucus Moderate - 2+ H NAD RRR CTAB abd soft, non distended, no rebound, no guarding, no grimace with palpation Imp: cecal bascule non obstructing depression Plan: VS and labs stable clinical exam benign WBC lower today AXR pending consider contrast CT later if pain does not improve will need outpt colonoscopy
--- NOTE | 2018-06-19 10:50 | PN ---
Objective - Vitals Vitals: Last Vital Signs Temp 36.4 C 06/19/18 10:00 Pulse 70 06/19/18 10:00 Resp 18 06/19/18 10:00 BP 94/63 06/19/18 10:00 Pulse Ox 100 06/19/18 10:00 - Abnormal Lab Findings Abnormal Lab Findings: Abnormal Lab Results 06/18/18 06/18/18 06/18/18 Range/Units 20:41 20:55 20:55 WBC 12.3 H (4.0-10.5) K/mm3 MCHC 31.7 L (32-36) g/dl Plt Count 457 H (150-450) K/mm3 Immature Gran # (Auto) 0.04 H (0.000-0.0310) K/mm3 Lymphocytes % (20-51) % Neutrophils # 8.4 H (1.3-6.0) K/mm3 Potassium 3.3 L (3.4-4.6) mmol/L Anion Gap (6.8-13.8) mmol/L Random Glucose 124 H (70-110) mg/dL Urine Blood 250 H (NEGATIVE) /ul Urine RBC 5-10 H (0-5) /hpf Ur Epithelial Cells 5-10 H (0-5) /hpf Urine Bacteria 1+ H (NONE) Urine Mucus Moderate - 2+ H (NONE) 06/19/18 06/19/18 Range/Units 06:00 07:32 WBC (4.0-10.5) K/mm3 MCHC (32-36) g/dl Plt Count (150-450) K/mm3 Immature Gran # (Auto) (0.000-0.0310) K/mm3 Lymphocytes % 19.8 L (20-51) % Neutrophils # 7.0 H (1.3-6.0) K/mm3 Potassium (3.4-4.6) mmol/L Anion Gap 13.9 H (6.8-13.8) mmol/L Random Glucose 120 H (70-110) mg/dL Urine Blood (NEGATIVE) /ul Urine RBC (0-5) /hpf Ur Epithelial Cells (0-5) /hpf Urine Bacteria (NONE) Urine Mucus (NONE) Assessment/Plan - Problems/Diagnosis (1) Abdominal pain Problem: Acute Qualifiers: Abdominal location: right lower quadrant Qualified Code(s): R10.31 - Right lower quadrant pain (2) Major depression Problem: Chronic Qualifiers: (3) Borderline personality disorder Problem: Chronic
--- NOTE | 2018-06-19 12:41 | DS ---
(1) Abdominal pain Problem: Chronic Qualifiers: Abdominal location: right lower quadrant Qualified Code(s): R10.31 - Right lower quadrant pain (2) Major depression Problem: Chronic Qualifiers: (3) Borderline personality disorder Problem: Chronic Description of Stay: Pt was admitted through the ER. CT scan showed no obstruction or bowel compromise, but did show a cecal bascule. She was admitted for observation and received only toradol overnoc for pain. Her am AXR showed no obstruction. She has been passing flatus. She has never had a colonoscopy. Procedures Performed: none Results and Findings: Lab Pending Results 06/18/18 20:41: Urine Color Yellow, Urine Appearance Clear, Urine pH 6.0, Ur Specific [place] >=1.030, Urine Protein Negative, Urine Glucose (UA) Negative, Urine Ketones Negative, Urine Blood 250 H, Urine Nitrate Negative, Urine Bilirubin Negative, Urine Urobilinogen Normal, Ur Leukocyte Esterase Negative, Urine RBC 5-10 H, Urine WBC 0-5, Ur Epithelial Cells 5-10 H, Urine Bacteria 1+ H, Urine Mucus Moderate - 2+ H, Urine Culture Comments No culture indicated 06/18/18 20:55: WBC 12.3 H, RBC 4.62, Hgb 13.3, Hct 41.9, MCV 90.7, MCH 28.8, MCHC 31.7 L, RDW 12.9, Plt Count 457 H, MPV 9.0, Immature Gran % (Auto) 0.30, Immature Gran # (Auto) 0.04 H, Neutrophils % 68.7, Lymphocytes % 22.0, Monocytes % 7.2, Eosinophils % 1.4, Basophils % 0.4, Nucleated RBC % 0.0, Neutrophils # 8.4 H, Lymphocytes # 2.70, Monocytes # 0.9, Eosinophils # 0.2, Absolute Basophils 0.1 06/18/18 20:55: Sodium 135, Plasma Sodium 135, Potassium 3.3 L, Chloride 102, Carbon Dioxide 26.9, Anion Gap 9.4, BUN 13, Creatinine 0.73, Est GFR (Non-Af Amer) 90, BUN/Creatinine Ratio 17.8, Random Glucose 124 H, Calcium 10.2 06/18/18 23:50: Lactic Acid, Venous 0.8 06/19/18 06:00: Sodium 140, Plasma Sodium 140, Potassium 3.5, Chloride 104, Carbon Dioxide 25.6, Anion Gap 13.9 H, BUN 9, Creatinine 0.68, Est GFR (Non-Af Amer) 98, BUN/Creatinine Ratio 13.2, Random Glucose 120 H, Calcium 9.2 06/19/18 07:32: WBC 10.0, RBC 4.44, Hgb 13.1, Hct 40.3, MCV 90.8, MCH 29.5, MCHC 32.5, RDW 13.0, Plt Count 397, MPV 9.2, Immature Gran % (Auto) 0.30, Immature Gran # (Auto) 0.03, Neutrophils % 70.4, Lymphocytes % 19.8 L, Monocytes % 7.8, Eosinophils % 1.3, Basophils % 0.4, Nucleated RBC % 0.0, Neutrophils # 7.0 H, Lymphocytes # 1.98, Monocytes # 0.8, Eosinophils # 0.1, Absolute Basophils 0.0 Discharge Location: Home Disposition: Home self-care Condition: Good Discharge Activity: Activity as tolerated Discharge Diet: [facility] soft Referrals: Des Payton DO [Primary Care Provider] - Complete Home Medications List: Complete Home Medication List: albuterol sulfate 2.5 mg/3 mL (0.083 %) solution for nebulization 2.5 mg IH Q4H PRN 10/30/17 cetirizine 10 mg tablet 10 mg PO DAILY PRN 10/30/17 ferrous sulfate 325 mg (65 mg iron) tablet 325 mg PO DAILY tab 10/30/17 cholecalciferol (vitamin D3) 1,000 unit capsule 1,000 unit PO DAILY 11/02/17 albuterol sulfate HFA 90 mcg/actuation aerosol inhaler 2 puff IH TID PRN #8.5 g 05/27/18 famotidine 40 mg tablet 40 mg PO DAILY #30 tab 06/12/18 fluticasone 250 mcg-salmeterol 50 mcg/dose blistr powdr for inhalation 1 inh IH BID #60 ea 06/12/18 alprazolam 0.5 mg tablet 0.5 mg PO BID PRN #60 tab 06/17/18 fluoxetine 20 mg capsule 20 mg PO DAILY #30 cap 06/17/18 lamotrigine 150 mg tablet 150 mg PO DAILY #30 tab 06/17/18 lisdexamfetamine 40 mg capsule 40 mg PO DAILY #30 cap 06/17/18 Montelukast Sodium [Singulair] 10 mg PO QPM PRN 06/18/18
[2018-06-19 14:01] VITALS: BP 113/72
== END 2018-06-19 14:04 | disposition home or self-care (01) ==
LOC: ER 20:13 → MS 20:13
PROVIDERS: ADMIT Surgery; ATTEND Surgery
CPT/HCPCS: 36415; 74019; 74020; 74176; 80048; 81001; 83605; 85025; 96360; 96361; G0378